=== PATIENT | male | born 1940 | race Two or more races ===

== ENCOUNTER 2023-02-19 10:06 | Inpatient (IN) | payer MEDICARE, OTHER ==
[~2023-02-19] VITALS: Ht 167.6 cm; Wt 70.4 kg
[2023-02-19] MEDS ORDERED: NITROGLYCERIN 0.4 MG SL TAB SL ONE (10:15)
[2023-02-19 10:45] LABS: Basophils # (auto) 0 10 ^3/uL (0-0.2); Basophils % (auto) 0.9 % (0.0-2.0); Eosinophils # (auto) 0.4 10 ^3/uL (0-0.8); Eosinophils % (auto) 8.8 % (0.0-7.0); Hematocrit 26.9 % (41.0-53.0); Hemoglobin 9.4 g/dL (13.5-17.5); Lymphocytes # (auto) 0.7 10 ^3/uL (0.4-5.4); Lymphocytes % (auto) 15.5 % (10.0-50.0); Mean Corpuscular Hemoglobin 32.6 pg (28.0-32.0); Mean Corpuscular Volume 93.2 fL (80.0-100.0); Monocytes # (auto) 0.4 10 ^3/uL (0-1.3); Monocytes % (auto) 8.7 % (0.0-12.0); Neutrophils # (auto) 2.8 10 ^3/uL (1.6-8.6); Neutrophils % (auto) 66.1 % (37.0-80.0); Red Blood Cells 2.88 10^6/uL (4.5-5.90); White Blood Cell 4.2 10^3/uL (4.4-10.8)
[2023-02-19 10:55] LABS: Albumin 3.1 g/dL (3.4-5.0); Calcium 7.5 mg/dL (8.5-10.1); Magnesium 1.8 mg/dL (1.6-2.6); Potassium 3.7 mmol/L (3.5-5.1)
[2023-02-19 10:59] LABS: BUN/Creatinine Ratio 5.6 (10.0-20.0); Bilirubin, Total 0.6 mg/dL (0.2-1.0); Total Protein 7.3 g/dL (6.4-8.2)
[2023-02-19] MEDS ORDERED: AZITHROMYCIN 500MG/ 250ML 250 ML IV ONE (11:30)
[2023-02-19 13:16] LABS: Urine Bacteria FEW /hpf (None Seen); Urine Blood TRACE /uL (Negative); Urine Specific Gravity 1.007 (1.001-1.035); Urine WBC 165 /hpf (0 - 3)
[2023-02-19] MEDS ORDERED: levoFLOXacin 750MG 150 ML IV ONE (14:00)
[2023-02-19] MEDS ORDERED: DOPamine 1600MCG/ML D5W 250 ML IV SCH (16:15)
[2023-02-19] MEDS ORDERED: GLUCAGON EMERG KIT 1mg/1ml IV ONE (16:15)
[2023-02-19] MEDS ORDERED: MORPHINE SULFATE INJ 2 MG/ml SYRG IV PRN (16:30)
[2023-02-19] MEDS ORDERED: ACETAMINOPHEN 325 MG TAB PO PRN (16:30)
[2023-02-19] MEDS ORDERED: ONDANSETRON HCL 4 MG/2 ML VIAL IV PRN (16:30)
[2023-02-19] MEDS ORDERED: DOCUSATE SOD 100 MG CAP PO PRN (16:30)
[2023-02-19] MEDS ORDERED: NITROGLYCERIN 0.4 MG SL TAB SL PRN (16:30)
[2023-02-19] MEDS ORDERED: AMLO-489 PO (16:49)
[2023-02-19] MEDS ORDERED: ISOS1TAB28 PO (16:49)
[2023-02-19] MEDS ORDERED: CARV3.1240 PO (16:49)
[2023-02-19] MEDS ORDERED: FUR20T PO (16:49)
[2023-02-19] MEDS ORDERED: FUROSEMIDE 40 MG/4 ML VIAL IV ONE (17:00)
[2023-02-19] MEDS: HYDROcodone-ACET 5/325MG TAB PO PRN (21:44)
[2023-02-19] MEDS: SODIUM CHLOR 0.9% PF (SALINE LOCK) 10ML VIAL/SYR IV SCH (21:51)
[2023-02-20] MEDS: SODIUM CHLOR 0.9% PF (SALINE LOCK) 10ML VIAL/SYR IV SCH ×3 (06:05→21:20)
[2023-02-20 06:43] LABS: Albumin 2.9 g/dL (3.4-5.0); Calcium 8.2 mg/dL (8.5-10.1); Potassium 4.8 mmol/L (3.5-5.1)
[2023-02-20 06:47] LABS: Basophils # (auto) 0.1 10 ^3/uL (0-0.2); Basophils % (auto) 1.1 % (0.0-2.0); Eosinophils # (auto) 0.3 10 ^3/uL (0-0.8); Eosinophils % (auto) 6.7 % (0.0-7.0); Hematocrit 27.4 % (41.0-53.0); Hemoglobin 9.5 g/dL (13.5-17.5); Lymphocytes # (auto) 0.6 10 ^3/uL (0.4-5.4); Lymphocytes % (auto) 12.9 % (10.0-50.0); Mean Corpuscular Hgb Conc. 34.8 g/dL (32.0-36.0); Mean Corpuscular Volume 92.1 fL (80.0-100.0); Monocytes # (auto) 0.5 10 ^3/uL (0-1.3); Monocytes % (auto) 9.8 % (0.0-12.0); Neutrophils # (auto) 3.2 10 ^3/uL (1.6-8.6); Neutrophils % (auto) 69.5 % (37.0-80.0); Nucleated Red Blood Cells % 0.1 %; Red Blood Cells 2.97 10^6/uL (4.5-5.90); Red Cell Distribution Width 14.8 % (11.8-14.3); White Blood Cell 4.6 10^3/uL (4.4-10.8)
[2023-02-20 06:50] LABS: BUN/Creatinine Ratio 6.2 (10.0-20.0); Bilirubin, Total 0.5 mg/dL (0.2-1.0); Total Protein 7.4 g/dL (6.4-8.2)
[2023-02-20] MEDS ORDERED: ISOSORBIDE MONONITRATE ER 60 MG TAB PO SCH (10:00)
[2023-02-20] MEDS: FUROSEMIDE 20 MG TAB PO SCH (10:01)
[2023-02-20] MEDS ORDERED: EPOETIN ALFA-EPBX 10,000 UNIT/1ML VIAL SC ONE (21:00)
[2023-02-21 05:00] VITALS: BP 102/50
[2023-02-21 06:44] LABS: Basophils # (auto) 0 10 ^3/uL (0-0.2); Basophils % (auto) 0.9 % (0.0-2.0); Eosinophils # (auto) 0.2 10 ^3/uL (0-0.8); Eosinophils % (auto) 4.9 % (0.0-7.0); Hematocrit 25.5 % (41.0-53.0); Hemoglobin 8.8 g/dL (13.5-17.5); Lymphocytes # (auto) 0.5 10 ^3/uL (0.4-5.4); Lymphocytes % (auto) 10.2 % (10.0-50.0); Mean Corpuscular Hemoglobin 32.6 pg (28.0-32.0); Mean Corpuscular Hgb Conc. 34.4 g/dL (32.0-36.0); Mean Corpuscular Volume 94.7 fL (80.0-100.0); Monocytes # (auto) 0.6 10 ^3/uL (0-1.3); Monocytes % (auto) 12.7 % (0.0-12.0); Neutrophils # (auto) 3.3 10 ^3/uL (1.6-8.6); Neutrophils % (auto) 71.3 % (37.0-80.0); Nucleated Red Blood Cells % 0.4 %; Red Blood Cells 2.69 10^6/uL (4.5-5.90); Red Cell Distribution Width 15.1 % (11.8-14.3); White Blood Cell 4.6 10^3/uL (4.4-10.8)
[2023-02-21] MEDS: SODIUM CHLOR 0.9% PF (SALINE LOCK) 10ML VIAL/SYR IV SCH ×3 (06:44→22:00)
[2023-02-21 06:53] LABS: BUN/Creatinine Ratio 5.4 (10.0-20.0); Calcium 7.9 mg/dL (8.5-10.1); Potassium 4.2 mmol/L (3.5-5.1)
[2023-02-21 08:00] VITALS: BP 104/59
[2023-02-21] MEDS: FUROSEMIDE 20 MG TAB PO SCH (09:33)
[2023-02-21 12:00] VITALS: BP 115/64
[2023-02-21 16:00] VITALS: BP 121/56
[2023-02-21 22:00] VITALS: BP 120/64
[2023-02-22 05:00] VITALS: BP 115/61
[2023-02-22] MEDS: SODIUM CHLOR 0.9% PF (SALINE LOCK) 10ML VIAL/SYR IV SCH ×3 (06:18→22:00)
[2023-02-22 09:00] VITALS: BP 144/69
[2023-02-22] MEDS: FUROSEMIDE 20 MG TAB PO SCH (09:33)
[2023-02-22 13:00] VITALS: BP 129/76
[2023-02-22 17:00] VITALS: BP 125/73
[2023-02-22] MEDS: HYDROcodone-ACET 5/325MG TAB PO PRN (18:09)
[2023-02-22 22:00] VITALS: BP 125/63
[2023-02-23 05:00] VITALS: BP 116/64
[2023-02-23] MEDS: SODIUM CHLOR 0.9% PF (SALINE LOCK) 10ML VIAL/SYR IV SCH ×3 (05:14→21:41)
[2023-02-23] MEDS ORDERED: SODIUM CHL 0.9% 1000 ML BAG XX ONE (07:00)
[2023-02-23 09:00] VITALS: BP 129/72
[2023-02-23] MEDS: FUROSEMIDE 20 MG TAB PO SCH (10:07)
[2023-02-23 13:00] VITALS: BP 116/69
[2023-02-23 16:51] VITALS: BP 103/58
[2023-02-23] MEDS ORDERED: EPOETIN ALFA-EPBX 4,000 UNIT/ML VIAL SC ONE (21:00)
[2023-02-23 21:06] LABS: INR 1.19 (0.9-1.15); Partial Thromboplastin Time 29.4 sec (24.6-33.4)
[2023-02-23 22:00] VITALS: BP 114/64
[2023-02-24] VITALS (8 sets, daily range): BP systolic 99–162; BP diastolic 42–75
[2023-02-24] MEDS: SODIUM CHLOR 0.9% PF (SALINE LOCK) 10ML VIAL/SYR IV SCH ×3 (06:00→22:00)
[2023-02-24] MEDS: FUROSEMIDE 20 MG TAB PO SCH ×2 (09:19→10:00)
[2023-02-24] MEDS: HYDROcodone-ACET 5/325MG TAB PO PRN (10:38)
[2023-02-24] MEDS ORDERED: HEPARIN SODIUM (PORCINE) 5000 UNITS/ML 1ML VIAL ONE (16:20)
[2023-02-24] MEDS ORDERED: MIDAZOLAM HCL 2MG/2ML 2ml VIAL (1mg/ml) ONE (16:20)
[2023-02-24] MEDS ORDERED: ANGIOMAX 250 MG VIAL IV ONE (16:20)
[2023-02-24] MEDS ORDERED: VERAPAMIL 2.5MG/ML INJ 2ML VIAL IV ONE (16:20)
[2023-02-24] MEDS ORDERED: fentaNYL CITRATE 100 MCG/2 ML VL ONE (16:20)
[2023-02-24] MEDS ORDERED: LIDOCAINE 2%HCL (LOCAL ANESTH.) INJ 20ML MDV ONE (16:21)
[2023-02-24] MEDS ORDERED: SODIUM CHL 0.9% 0 ML ONE (16:21)
[2023-02-24] MEDS ORDERED: IODIXANOL 320MG/ML 100ML BTL IV ONE ×2 (16:21→16:35)
[2023-02-25 05:00] VITALS: BP 154/69
[2023-02-25] MEDS: SODIUM CHLOR 0.9% PF (SALINE LOCK) 10ML VIAL/SYR IV SCH ×2 (06:47→13:12)
[2023-02-25 06:51] LABS: Potassium 4.9 mmol/L (3.5-5.1)
[2023-02-25 06:53] LABS: Basophils # (auto) 0 10 ^3/uL (0-0.2); Basophils % (auto) 1.2 % (0.0-2.0); Eosinophils # (auto) 0.2 10 ^3/uL (0-0.8); Eosinophils % (auto) 6.7 % (0.0-7.0); Hematocrit 26.9 % (41.0-53.0); Hemoglobin 9.3 g/dL (13.5-17.5); Lymphocytes # (auto) 0.7 10 ^3/uL (0.4-5.4); Mean Corpuscular Hemoglobin 32.4 pg (28.0-32.0); Mean Corpuscular Hgb Conc. 34.6 g/dL (32.0-36.0); Mean Corpuscular Volume 93.5 fL (80.0-100.0); Monocytes # (auto) 0.5 10 ^3/uL (0-1.3); Monocytes % (auto) 12.6 % (0.0-12.0); Neutrophils # (auto) 2.2 10 ^3/uL (1.6-8.6); Neutrophils % (auto) 60.5 % (37.0-80.0); Nucleated Red Blood Cells % 0.3 %; Red Blood Cells 2.88 10^6/uL (4.5-5.90); Red Cell Distribution Width 15.1 % (11.8-14.3); White Blood Cell 3.7 10^3/uL (4.4-10.8)
[2023-02-25 06:57] LABS: BUN/Creatinine Ratio 7.8 (10.0-20.0); Calcium 8.9 mg/dL (8.5-10.1)
[2023-02-25 09:00] VITALS: BP 167/76
[2023-02-25] MEDS: FUROSEMIDE 20 MG TAB PO SCH (09:32)
[2023-02-25] MEDS ORDERED: amLODIPine BESYLATE 5 MG TAB PO SCH (10:00)
[2023-02-25] MEDS ORDERED: CARVEDILOL 3.125 MG TAB PO SCH (10:00)
[2023-02-25 13:00] VITALS: BP 155/65
[2023-02-25 15:49] VITALS: BP 155/65
[2023-02-25] MEDS ORDERED: SODIUM CHL 0.9% 1000 ML BAG XX ONE (16:30)
[2023-02-25 17:00] VITALS: BP 119/60
== END 2023-02-25 18:45 | disposition home or self-care (01) | DRG 280 ==
LOC: ER 10:06 → EDBD 10:06 → TELE 16:16 → TELE-WESTW 02-20 18:03 → WEST WING 02-25 13:36
PROVIDERS: ADMIT Nurse Practitioner Family; ATTEND Internal Medicine Geriatric Medicine
PROC: 5A1D70Z Performance of Urinary Filtration, Intermittent, Less than 6 Hours Per Day (ICD-10-PCS; 2023-02-20)
PROC: 5A1D70Z Performance of Urinary Filtration, Intermittent, Less than 6 Hours Per Day (ICD-10-PCS; 2023-02-23)
PROC: 4A023N8 Measurement of Cardiac Sampling and Pressure, Bilateral, Percutaneous Approach (ICD-10-PCS; principal; 2023-02-24)
PROC: B211YZZ Fluoroscopy of Multiple Coronary Arteries using Other Contrast (ICD-10-PCS; 2023-02-24)
PROC: B215YZZ Fluoroscopy of Left Heart using Other Contrast (ICD-10-PCS; 2023-02-24)
PROC: 5A1D70Z Performance of Urinary Filtration, Intermittent, Less than 6 Hours Per Day (ICD-10-PCS; 2023-02-25)
DX: I13.2 Hypertensive heart and chronic kidney disease with heart failure and with stage 5 chronic kidney disease, or end stage renal disease (principal); I21.A1 Myocardial infarction type 2; I50.33 Acute on chronic diastolic (congestive) heart failure; J96.01 Acute respiratory failure with hypoxia; N18.6 End stage renal disease; N39.0 Urinary tract infection, site not specified; E87.1 Hypo-osmolality and hyponatremia; E44.0 Moderate protein-calorie malnutrition; E87.20 Acidosis, unspecified; I49.5 Sick sinus syndrome; E83.51 Hypocalcemia; D63.1 Anemia in chronic kidney disease; D69.6 Thrombocytopenia, unspecified; E11.22 Type 2 diabetes mellitus with diabetic chronic kidney disease; I27.20 Pulmonary hypertension, unspecified; I35.1 Nonrheumatic aortic (valve) insufficiency; I44.0 Atrioventricular block, first degree; I42.0 Dilated cardiomyopathy; Z99.2 Dependence on renal dialysis; Z79.899 Other long term (current) drug therapy; Z86.73 Personal history of transient ischemic attack (TIA), and cerebral infarction without residual deficits
CPT/HCPCS: 36415; 71045; 76937; 80048; 80053; 80061; 81001; 82962; 83735; 83880; 84484; 85025; 85610; 85730; 86850; 86900; 86901; 90935; 93005; 93306; 93460; 96365; 96366; 96367; 99152; 99153; G0378; J1956; J2250; J2405; Q9967

== ENCOUNTER 2023-03-05 08:39 | Inpatient (IN) | payer MEDICARE ==
[~2023-03-05] VITALS: Ht 167.6 cm; Wt 62.8 kg
[~2023-03-05 08:39] MED LIST: AMLO1TAB22 PO; CARV3.1240 PO; FUR20T PO; ISOS1TAB28 PO
[2023-03-05 09:41] LABS: Basophils # (auto) 0.1 10 ^3/uL (0-0.2); Basophils % (auto) 1.2 % (0.0-2.0); Eosinophils # (auto) 0.3 10 ^3/uL (0-0.8); Eosinophils % (auto) 6.9 % (0.0-7.0); Hematocrit 33.2 % (41.0-53.0); Hemoglobin 11.1 g/dL (13.5-17.5); Lymphocytes # (auto) 0.8 10 ^3/uL (0.4-5.4); Lymphocytes % (auto) 16.9 % (10.0-50.0); Mean Corpuscular Hemoglobin 31.9 pg (28.0-32.0); Mean Corpuscular Hgb Conc. 33.3 g/dL (32.0-36.0); Mean Corpuscular Volume 95.9 fL (80.0-100.0); Monocytes # (auto) 0.4 10 ^3/uL (0-1.3); Monocytes % (auto) 8.8 % (0.0-12.0); Neutrophils # (auto) 3.1 10 ^3/uL (1.6-8.6); Neutrophils % (auto) 66.2 % (37.0-80.0); Nucleated Red Blood Cells % 0.1 %; Red Blood Cells 3.47 10^6/uL (4.5-5.90); Red Cell Distribution Width 16.2 % (11.8-14.3); White Blood Cell 4.6 10^3/uL (4.4-10.8)
[2023-03-05 09:47] LABS: Urine Bacteria NONE SEEN /hpf (None Seen); Urine Blood Negative /uL (Negative); Urine Specific Gravity 1.011 (1.001-1.035); Urine WBC 39 /hpf (0 - 3)
[2023-03-05 10:12] LABS: Albumin 3.2 g/dL (3.4-5.0); Calcium 8.3 mg/dL (8.5-10.1); Magnesium 2.1 mg/dL (1.6-2.6); Potassium 4.2 mmol/L (3.5-5.1)
[2023-03-05 10:17] LABS: Bilirubin, Total 0.7 mg/dL (0.2-1.0); Total Protein 7.5 g/dL (6.4-8.2)
[2023-03-05] MEDS ORDERED: ASPirin 325 MG TAB PO ONE (10:30)
[2023-03-05] MEDS ORDERED: cefTRIAXone 1GM/50ML D5W 50 ML IV ONE (11:00)
[2023-03-05] MEDS ORDERED: NITROGLYCERIN 0.4 MG SL TAB SL PRN (13:45)
[2023-03-05] MEDS ORDERED: MORPHINE SULFATE INJ 2 MG/ml SYRG IV PRN (13:45)
[2023-03-05] MEDS ORDERED: DOCUSATE SOD 100 MG CAP PO PRN (13:45)
[2023-03-05] MEDS: SODIUM CHLOR 0.9% PF (SALINE LOCK) 10ML VIAL/SYR IV SCH ×2 (14:03→22:13)
[2023-03-05] MEDS ORDERED: DEXTROSE (50%) 50ML SYRG IV PRN (20:00)
[2023-03-05] MEDS ORDERED: InsuLIN REG 1unit/0.01ml Soln (100units/ml) SC SCH (22:00)
[2023-03-05] MEDS: ACCU-CHEK COMFORT CURVE STRIP VI SCH (22:09)
[2023-03-05] MEDS: CARVEDILOL 3.125 MG TAB PO SCH (22:13)
[2023-03-05] MEDS: HYDROcodone-ACET 5/325MG TAB PO PRN (22:14)
[2023-03-06] MEDS: SODIUM CHLOR 0.9% PF (SALINE LOCK) 10ML VIAL/SYR IV SCH ×3 (06:03→23:12)
[2023-03-06 06:18] LABS: Basophils # (auto) 0.1 10 ^3/uL (0-0.2); Basophils % (auto) 1.3 % (0.0-2.0); Eosinophils # (auto) 0.5 10 ^3/uL (0-0.8); Eosinophils % (auto) 8.8 % (0.0-7.0); Hemoglobin 10.4 g/dL (13.5-17.5); Lymphocytes # (auto) 0.9 10 ^3/uL (0.4-5.4); Mean Corpuscular Hgb Conc. 33.4 g/dL (32.0-36.0); Mean Corpuscular Volume 95.8 fL (80.0-100.0); Monocytes # (auto) 0.6 10 ^3/uL (0-1.3); Monocytes % (auto) 11.2 % (0.0-12.0); Neutrophils # (auto) 3.4 10 ^3/uL (1.6-8.6); Neutrophils % (auto) 62.7 % (37.0-80.0); Nucleated Red Blood Cells % 0.1 %; Red Blood Cells 3.24 10^6/uL (4.5-5.90); Red Cell Distribution Width 16.3 % (11.8-14.3); White Blood Cell 5.4 10^3/uL (4.4-10.8)
[2023-03-06 06:30] LABS: Albumin 2.9 g/dL (3.4-5.0); Potassium 4.6 mmol/L (3.5-5.1)
[2023-03-06] MEDS: InsuLIN REG 1unit/0.01ml Soln (100units/ml) SC SCH ×2 (06:32→11:13)
[2023-03-06] MEDS: ACCU-CHEK COMFORT CURVE STRIP VI SCH ×2 (06:32→11:14)
[2023-03-06 06:35] LABS: BUN/Creatinine Ratio 6.9 (10.0-20.0); Bilirubin, Total 0.7 mg/dL (0.2-1.0); Total Protein 7.3 g/dL (6.4-8.2)
[2023-03-06] MEDS: amLODIPine BESYLATE 5 MG TAB PO SCH (10:15)
[2023-03-06] MEDS: CARVEDILOL 3.125 MG TAB PO SCH ×2 (10:15→22:57)
[2023-03-06] MEDS: FUROSEMIDE 20 MG TAB PO SCH (10:16)
[2023-03-06] MEDS: ISOSORBIDE MONONITRATE ER 60 MG TAB PO SCH (10:17)
[2023-03-06 13:00] VITALS: BP 127/69
[2023-03-06 17:00] VITALS: BP 116/63
[2023-03-06 20:00] VITALS: BP 117/67
[2023-03-06 22:00] VITALS: BP 117/67
[2023-03-07] MEDS: SODIUM CHLOR 0.9% PF (SALINE LOCK) 10ML VIAL/SYR IV SCH ×3 (06:10→22:00)
[2023-03-07 06:55] LABS: Basophils # (auto) 0.1 10 ^3/uL (0-0.2); Basophils % (auto) 0.9 % (0.0-2.0); Eosinophils # (auto) 0.5 10 ^3/uL (0-0.8); Eosinophils % (auto) 6.6 % (0.0-7.0); Hematocrit 28.5 % (41.0-53.0); Hemoglobin 9.8 g/dL (13.5-17.5); Lymphocytes # (auto) 0.8 10 ^3/uL (0.4-5.4); Lymphocytes % (auto) 10.6 % (10.0-50.0); Mean Corpuscular Hemoglobin 32.6 pg (28.0-32.0); Mean Corpuscular Hgb Conc. 34.3 g/dL (32.0-36.0); Monocytes # (auto) 0.8 10 ^3/uL (0-1.3); Monocytes % (auto) 9.9 % (0.0-12.0); Neutrophils # (auto) 5.5 10 ^3/uL (1.6-8.6); Nucleated Red Blood Cells % 0.1 %; Red Cell Distribution Width 15.8 % (11.8-14.3); White Blood Cell 7.7 10^3/uL (4.4-10.8)
[2023-03-07 07:41] LABS: Potassium 5.2 mmol/L (3.5-5.1)
[2023-03-07 07:42] LABS: Calcium 8.5 mg/dL (8.5-10.1)
[2023-03-07 07:44] LABS: BUN/Creatinine Ratio 7.1 (10.0-20.0)
[2023-03-07 08:00] VITALS: BP 111/64
[2023-03-07 09:00] VITALS: BP 111/64
[2023-03-07] MEDS: CARVEDILOL 3.125 MG TAB PO SCH ×2 (10:00→21:51)
[2023-03-07] MEDS: amLODIPine BESYLATE 5 MG TAB PO SCH (10:00)
[2023-03-07] MEDS: ISOSORBIDE MONONITRATE ER 60 MG TAB PO SCH (10:00)
[2023-03-07] MEDS: FUROSEMIDE 20 MG TAB PO SCH (10:00)
[2023-03-07] MEDS ORDERED: SODIUM CHL 0.9% 1000 ML BAG XX ONE (11:00)
[2023-03-07 13:00] VITALS: BP 115/60
[2023-03-07] MEDS: ACETAMINOPHEN 325 MG TAB PO PRN (16:08)
[2023-03-07 16:42] VITALS: BP 104/59
[2023-03-07 20:00] VITALS: BP 119/61
[2023-03-07] MEDS ORDERED: EPOETIN ALFA-EPBX 10,000 UNIT/1ML VIAL SC ONE (21:00)
[2023-03-07 22:00] VITALS: BP 119/61
[2023-03-08 05:00] VITALS: BP 103/57
[2023-03-08] MEDS: SODIUM CHLOR 0.9% PF (SALINE LOCK) 10ML VIAL/SYR IV SCH ×3 (06:00→21:43)
[2023-03-08 06:32] LABS: Basophils # (auto) 0 10 ^3/uL (0-0.2); Basophils % (auto) 0.8 % (0.0-2.0); Eosinophils # (auto) 0.4 10 ^3/uL (0-0.8); Hematocrit 29.9 % (41.0-53.0); Hemoglobin 10.4 g/dL (13.5-17.5); Lymphocytes # (auto) 0.8 10 ^3/uL (0.4-5.4); Lymphocytes % (auto) 15.1 % (10.0-50.0); Mean Corpuscular Hemoglobin 32.9 pg (28.0-32.0); Mean Corpuscular Hgb Conc. 34.7 g/dL (32.0-36.0); Mean Corpuscular Volume 94.9 fL (80.0-100.0); Monocytes # (auto) 0.6 10 ^3/uL (0-1.3); Monocytes % (auto) 11.7 % (0.0-12.0); Neutrophils # (auto) 3.5 10 ^3/uL (1.6-8.6); Neutrophils % (auto) 65.4 % (37.0-80.0); Nucleated Red Blood Cells % 0.1 %; Red Blood Cells 3.15 10^6/uL (4.5-5.90); Red Cell Distribution Width 15.9 % (11.8-14.3); White Blood Cell 5.3 10^3/uL (4.4-10.8)
[2023-03-08 09:00] VITALS: BP 114/60
[2023-03-08] MEDS: CARVEDILOL 3.125 MG TAB PO SCH ×2 (09:44→21:42)
[2023-03-08] MEDS: FUROSEMIDE 20 MG TAB PO SCH (09:45)
[2023-03-08] MEDS: ISOSORBIDE MONONITRATE ER 60 MG TAB PO SCH (09:45)
[2023-03-08] MEDS: amLODIPine BESYLATE 5 MG TAB PO SCH (09:45)
[2023-03-08 13:00] VITALS: BP 94/51
[2023-03-08] MEDS: ACETAMINOPHEN 325 MG TAB PO PRN (15:58)
[2023-03-08 17:00] VITALS: BP 96/52
[2023-03-08 20:30] LABS: BUN/Creatinine Ratio 7.5 (10.0-20.0); Potassium 4.9 mmol/L (3.5-5.1)
[2023-03-08] MEDS: HYDROcodone-ACET 5/325MG TAB PO PRN (21:41)
[2023-03-08 22:00] VITALS: BP 108/57
[2023-03-09] MEDS: HYDROcodone-ACET 5/325MG TAB PO PRN ×2 (03:05→19:57)
[2023-03-09 05:00] VITALS: BP 100/54
[2023-03-09] MEDS: SODIUM CHLOR 0.9% PF (SALINE LOCK) 10ML VIAL/SYR IV SCH ×3 (05:19→21:30)
[2023-03-09 06:49] LABS: BUN/Creatinine Ratio 7.9 (10.0-20.0); Potassium 5.3 mmol/L (3.5-5.1)
[2023-03-09 09:00] VITALS: BP 98/51
[2023-03-09] MEDS: CARVEDILOL 3.125 MG TAB PO SCH ×2 (10:00→21:29)
[2023-03-09] MEDS: FUROSEMIDE 20 MG TAB PO SCH (10:00)
[2023-03-09] MEDS: ISOSORBIDE MONONITRATE ER 60 MG TAB PO SCH (10:00)
[2023-03-09 13:00] VITALS: BP 104/55
[2023-03-09 17:00] VITALS: BP 123/65
[2023-03-09 22:00] VITALS: BP 104/59
[2023-03-10 05:00] VITALS: BP 106/53
[2023-03-10] MEDS: SODIUM CHLOR 0.9% PF (SALINE LOCK) 10ML VIAL/SYR IV SCH ×3 (06:05→23:09)
[2023-03-10] MEDS ORDERED: SODIUM CHL 0.9% 1000 ML BAG XX ONE (07:00)
[2023-03-10 07:02] LABS: Basophils # (auto) 0 10 ^3/uL (0-0.2); Eosinophils # (auto) 0.4 10 ^3/uL (0-0.8); Eosinophils % (auto) 10.3 % (0.0-7.0); Hemoglobin 10.5 g/dL (13.5-17.5); Lymphocytes % (auto) 23.8 % (10.0-50.0); Mean Corpuscular Hgb Conc. 33.7 g/dL (32.0-36.0); Monocytes # (auto) 0.5 10 ^3/uL (0-1.3); Monocytes % (auto) 12.7 % (0.0-12.0); Neutrophils # (auto) 2.1 10 ^3/uL (1.6-8.6); Neutrophils % (auto) 52.2 % (37.0-80.0); Nucleated Red Blood Cells % 0.1 %; Red Blood Cells 3.27 10^6/uL (4.5-5.90); Red Cell Distribution Width 15.3 % (11.8-14.3); White Blood Cell 4.1 10^3/uL (4.4-10.8)
[2023-03-10 07:58] LABS: Potassium 5.1 mmol/L (3.5-5.1)
[2023-03-10 08:01] LABS: BUN/Creatinine Ratio 8.6 (10.0-20.0); Calcium 7.8 mg/dL (8.5-10.1)
[2023-03-10 09:00] VITALS: BP 100/48
[2023-03-10] MEDS: ACETAMINOPHEN 325 MG TAB PO PRN (09:04)
[2023-03-10] MEDS: ISOSORBIDE MONONITRATE ER 60 MG TAB PO SCH (10:00)
[2023-03-10] MEDS: CARVEDILOL 3.125 MG TAB PO SCH ×2 (10:00→23:07)
[2023-03-10] MEDS: FUROSEMIDE 20 MG TAB PO SCH (10:00)
[2023-03-10] MEDS: HYDROcodone-ACET 5/325MG TAB PO PRN (11:21)
[2023-03-10 13:00] VITALS: BP 98/50
[2023-03-10 17:00] VITALS: BP 112/55
[2023-03-10 22:00] VITALS: BP 125/66
[2023-03-11 05:00] VITALS: BP 99/55
[2023-03-11 06:16] LABS: Basophils # (auto) 0 10 ^3/uL (0-0.2); Basophils % (auto) 0.8 % (0.0-2.0); Eosinophils # (auto) 0.4 10 ^3/uL (0-0.8); Eosinophils % (auto) 7.7 % (0.0-7.0); Hematocrit 30.4 % (41.0-53.0); Hemoglobin 10.5 g/dL (13.5-17.5); Lymphocytes # (auto) 0.7 10 ^3/uL (0.4-5.4); Lymphocytes % (auto) 13.9 % (10.0-50.0); Mean Corpuscular Hemoglobin 32.4 pg (28.0-32.0); Mean Corpuscular Hgb Conc. 34.6 g/dL (32.0-36.0); Mean Corpuscular Volume 93.7 fL (80.0-100.0); Monocytes # (auto) 0.8 10 ^3/uL (0-1.3); Monocytes % (auto) 14.2 % (0.0-12.0); Neutrophils # (auto) 3.4 10 ^3/uL (1.6-8.6); Neutrophils % (auto) 63.4 % (37.0-80.0); Nucleated Red Blood Cells % 0.1 %; Red Blood Cells 3.24 10^6/uL (4.5-5.90); Red Cell Distribution Width 15.2 % (11.8-14.3); White Blood Cell 5.3 10^3/uL (4.4-10.8)
[2023-03-11 06:25] LABS: BUN/Creatinine Ratio 8.1 (10.0-20.0); Calcium 8.4 mg/dL (8.5-10.1); Potassium 4.2 mmol/L (3.5-5.1)
[2023-03-11] MEDS: SODIUM CHLOR 0.9% PF (SALINE LOCK) 10ML VIAL/SYR IV SCH ×3 (06:30→22:00)
[2023-03-11] MEDS: CARVEDILOL 3.125 MG TAB PO SCH (08:49)
[2023-03-11] MEDS: FUROSEMIDE 20 MG TAB PO SCH (08:56)
[2023-03-11] MEDS: ISOSORBIDE MONONITRATE ER 60 MG TAB PO SCH (08:57)
[2023-03-11 09:00] VITALS: BP 98/60
[2023-03-11 13:00] VITALS: BP 108/55
[2023-03-11 17:00] VITALS: BP 98/45
[2023-03-11] MEDS ORDERED: HALOPERIDOL LACTATE 5 MG/ML INJ VIAL IM PRN (21:45)
[2023-03-11 22:00] VITALS: BP 103/61
[2023-03-11 23:03] LABS: Folate (Folic Acid) > 24.00 ng/mL (5.38-24)
[2023-03-12 05:00] VITALS: BP 109/59
[2023-03-12] MEDS: HYDROcodone-ACET 5/325MG TAB PO PRN (05:38)
[2023-03-12] MEDS: SODIUM CHLOR 0.9% PF (SALINE LOCK) 10ML VIAL/SYR IV SCH ×2 (05:38→14:00)
[2023-03-12 06:31] LABS: Basophils # (auto) 0.1 10 ^3/uL (0-0.2); Basophils % (auto) 1.6 % (0.0-2.0); Eosinophils # (auto) 0.5 10 ^3/uL (0-0.8); Eosinophils % (auto) 11.4 % (0.0-7.0); Hematocrit 30.8 % (41.0-53.0); Hemoglobin 10.6 g/dL (13.5-17.5); Lymphocytes % (auto) 25.4 % (10.0-50.0); Mean Corpuscular Hemoglobin 31.9 pg (28.0-32.0); Mean Corpuscular Hgb Conc. 34.4 g/dL (32.0-36.0); Mean Corpuscular Volume 92.8 fL (80.0-100.0); Monocytes # (auto) 0.5 10 ^3/uL (0-1.3); Monocytes % (auto) 13.1 % (0.0-12.0); Neutrophils % (auto) 48.5 % (37.0-80.0); Nucleated Red Blood Cells % 0.1 %; Red Blood Cells 3.32 10^6/uL (4.5-5.90); Red Cell Distribution Width 15.4 % (11.8-14.3); White Blood Cell 4.1 10^3/uL (4.4-10.8)
[2023-03-12 06:59] LABS: BUN/Creatinine Ratio 8.2 (10.0-20.0); Calcium 8.3 mg/dL (8.5-10.1); Potassium 4.4 mmol/L (3.5-5.1)
[2023-03-12] MEDS: ISOSORBIDE MONONITRATE ER 60 MG TAB PO SCH (08:41)
[2023-03-12] MEDS: FUROSEMIDE 20 MG TAB PO SCH (08:41)
[2023-03-12 08:45] VITALS: BP 104/57
[2023-03-12 11:54] VITALS: BP 104/57
[2023-03-12 13:00] VITALS: BP 100/52
== END 2023-03-12 17:40 | disposition home or self-care (01) | DRG 280 ==
LOC: EDBD 08:39 → ER 08:39 → TELE 13:49 → TELE-WESTW 03-06 12:38
PROVIDERS: ADMIT Nurse Practitioner Family; ATTEND Internal Medicine Pulmonary Disease
PROC: 5A1D70Z Performance of Urinary Filtration, Intermittent, Less than 6 Hours Per Day (ICD-10-PCS; principal; 2023-03-07)
PROC: 5A1D70Z Performance of Urinary Filtration, Intermittent, Less than 6 Hours Per Day (ICD-10-PCS; 2023-03-09)
DX: I21.4 Non-ST elevation (NSTEMI) myocardial infarction (principal); G93.41 Metabolic encephalopathy; N18.6 End stage renal disease; I50.23 Acute on chronic systolic (congestive) heart failure; I13.2 Hypertensive heart and chronic kidney disease with heart failure and with stage 5 chronic kidney disease, or end stage renal disease; N39.0 Urinary tract infection, site not specified; K21.9 Gastro-esophageal reflux disease without esophagitis; S00.83XA Contusion of other part of head, initial encounter; F17.200 Nicotine dependence, unspecified, uncomplicated; I34.0 Nonrheumatic mitral (valve) insufficiency; E11.22 Type 2 diabetes mellitus with diabetic chronic kidney disease; D63.1 Anemia in chronic kidney disease; M89.8X9 Other specified disorders of bone, unspecified site; F03.90 Unspecified dementia, unspecified severity, without behavioral disturbance, psychotic disturbance, mood disturbance, and anxiety; W18.39XA Other fall on same level, initial encounter; Y93.89 Activity, other specified; Y92.89 Other specified places as the place of occurrence of the external cause; Y99.8 Other external cause status; Z86.73 Personal history of transient ischemic attack (TIA), and cerebral infarction without residual deficits; Z99.2 Dependence on renal dialysis; Z83.3 Family history of diabetes mellitus; Z82.49 Family history of ischemic heart disease and other diseases of the circulatory system; Z91.81 History of falling; Z90.49 Acquired absence of other specified parts of digestive tract
CPT/HCPCS: 36415; 70450; 70486; 70551; 71045; 72125; 72170; 80048; 80053; 81001; 82607; 82746; 82962; 83735; 84132; 84443; 84484; 85025; 87081; 90935; 93005; 96365; 97110; 97116; 97163; 97530; 99291; G0378; J0696